=== PATIENT | female | born 1990 | race Caucasian/White ===

== ENCOUNTER 2016-07-16 15:59 | Emergency (ER) | payer BC, OTHER ==
--- NOTE | 2016-07-16 18:55 | ER Document Report ---
ED GI/ - General Chief Complaint: abdominal pain, N/V. Stated Complaint: ABDOMINAL PAIN,FEVER,VOMITING Time Seen by Provider: 07/16/16 18:54 TRAVEL OUTSIDE OF THE [place] IN LAST 30 DAYS: No - Related Data Allergies/Adverse Reactions: No Known Allergies Allergy (Unverified 07/16/16 16:12) Past Medical History - Social History Family History: Hypertension Renal/ Medical History: Denies: Hx Peritoneal Dialysis Past Surgical History: Reports: Hx Adenoidectomy, Hx Tonsillectomy - Immunizations Immunizations up to date: Yes Hx Diphtheria, Pertussis, Tetanus Vaccination: Yes Physical Exam - Vital signs Vitals: Temp Pulse Resp BP Pulse Ox 98.0 F 65 20 116/67 100 07/16/16 16:09 07/16/16 16:09 07/16/16 16:09 07/16/16 16:09 07/16/16 16:09 Course - Vital Signs Vital signs: Temp Pulse Resp BP Pulse Ox 98.0 F 65 20 116/67 100 07/16/16 16:09 07/16/16 16:09 07/16/16 16:09 07/16/16 16:09 07/16/16 16:09
[2016-07-16 19:34] LABS: HEMATOCRIT 39.5 % (36.0-47.0); HEMOGLOBIN 13.7 g/dL (12.0-15.5); HGB HCT DIFFERENCE 1.6; MEAN CORPUSCULAR HEMOGLOBIN 31.3 pg (27.0-33.4); MEAN CORPUSCULAR HGB CONC 34.8 g/dL (32.0-36.0); MEAN CORPUSCULAR VOLUME 90 fl (80-97); RED BLOOD COUNT 4.39 10^6/uL (3.72-5.28); RED CELL DISTRIBUTION WIDTH 13.1 % (11.5-14.0); WHITE BLOOD COUNT 9.1 10^3/uL (4.0-10.5)
[2016-07-16 19:51] LABS: AMORPHOUS SEDIMENT,URINE TRACE /HPF; APPEARANCE,URINE SLIGHTLY-CLOUDY; BILIRUBIN,URINE NEGATIVE (NEGATIVE); GLUCOSE, URINE NEGATIVE (NEGATIVE); KETONES,URINE NEGATIVE (NEGATIVE); LEUKOCYTE ESTERASE,URINE TRACE (NEGATIVE); NITRITE,URINE NEGATIVE (NEGATIVE); PROTEIN,URINE NEGATIVE (NEGATIVE); URINE SPECIFIC GRAVITY 1.013
[2016-07-16 19:53] LABS: ALANINE AMINOTRANSFERASE 33 U/L (9-52); ALBUMIN 4.1 g/dL (3.5-5.0); ALKALINE PHOSPHATASE 42 U/L (38-126); ANION GAP 12 (5-19); ASPARTATE AMINO TRANSFERASE 24 U/L (14-36); BILIRUBIN,DIRECT 0.3 mg/dL (0.0-0.4); BILIRUBIN,TOTAL 0.7 mg/dL (0.2-1.3); BLOOD UREA NITROGEN 6 mg/dL (7-20); CALCIUM 9.5 mg/dL (8.4-10.2); CARBON DIOXIDE 25 mmol/L (22-30); CHLORIDE 104 mmol/L (98-107); CREATINE KINASE 37 U/L (30-135); CREATININE RESULT 0.73 mg/dL (0.52-1.25); GLUCOSE 96 mg/dL (75-110); LIPASE 73.9 U/L (23-300); POTASSIUM 3.4 mmol/L (3.6-5.0); SODIUM 140.8 mmol/L (137-145); TOTAL PROTEIN 6.9 g/dL (6.3-8.2)
--- NOTE | 2016-07-16 20:05 | ER Document Report ---
ED Medical Screen (RME) - General Chief Complaint: abdominal pain, N/V. Stated Complaint: ABDOMINAL PAIN,FEVER,VOMITING Time Seen by Provider: 07/16/16 18:54 Notes: Patient is a 26-year-old female, no past medical history, presents with 3 days of diffuse abdominal pain, worse in the right lower quadrant. 2 nights ago, she had a large episode of emesis that was dark. She saw her primary care physician today and was sent to the emergency room due to abdominal tenderness. Denies urinary symptoms, flank pain, fevers or current nausea PE: RLQ and epigastric abdominal tenderness, good bowel sounds, NAD I have greeted and performed a rapid initial assessment of this patient. A comprehensive ED assessment and evaluation of the patient, analysis of test results and completion of the medical decision making process will be conducted by additional ED providers. TRAVEL OUTSIDE OF THE [place] IN LAST 30 DAYS: No - Related Data Allergies/Adverse Reactions: No Known Allergies Allergy (Unverified 07/16/16 16:12) Past Medical History - Social History Chew tobacco use (# tins/day): No Frequency of alcohol use: Occasional Renal/ Medical History: Denies: Hx Peritoneal Dialysis Past Surgical History: Reports: Hx Adenoidectomy, Hx Tonsillectomy - Immunizations Immunizations up to date: Yes Hx Diphtheria, Pertussis, Tetanus Vaccination: Yes Physical Exam - Vital signs Vitals: Temp Pulse Resp BP Pulse Ox 98.0 F 65 20 116/67 100 07/16/16 16:09 07/16/16 16:09 07/16/16 16:09 07/16/16 16:09 07/16/16 16:09 Course - Vital Signs Vital signs: Temp Pulse Resp BP Pulse Ox 98.0 F 65 20 116/67 100 07/16/16 16:09 07/16/16 16:09 07/16/16 16:09 07/16/16 16:09 07/16/16 16:09 - Laboratory Result Diagrams: 07/16/16 19:00 07/16/16 19:00 Laboratory results interpreted by me: 07/16/16 07/16/16 19:00 19:00 Potassium 3.4 L BUN 6 L Urine Blood SMALL H Urine Urobilinogen 2.0 H Ur Leukocyte Esterase TRACE H
[2016-07-16 20:34] LABS: BAND NEUTROPHILS % (MANUAL) 1 % (3-5); BASOPHILS % (MANUAL) 0 % (0-2); EOSINOPHILS % (MANUAL) 0 % (0-6); TOTAL CELLS COUNTED 100
[2016-07-16 20:35] LABS: LYMPHOCYTES % (MANUAL) 65 % (13-45); RBC MORPHOLOGY COMMENT NORMO-CYTIC/CHROMIC
--- NOTE | 2016-07-16 21:16 | RADIOLOGY REPORT (SQ) ---
EXAM DESCRIPTION: CT ABD/PELVIS WITH IV ONLY COMPLETED DATE/TIME: 07/16/2016 8:48 pm REASON FOR STUDY: RLQ abdominal pain COMPARISON: None. TECHNIQUE: CT scan of the abdomen and pelvis performed using helical scanning technique with dynamic intravenous contrast injection. No oral contrast. Images reviewed with lung, soft tissue, and bone windows. Reconstructed coronal and sagittal MPR images reviewed. Delayed images for evaluation of the urinary system also acquired. All images stored on PACS. All CT scanners at this facility use dose modulation, iterative reconstruction, and/or weight based d osing when appropriate to reduce radiation dose to as low as reasonably achievable (ALARA). [facility]: Dose Right [facility]: CareDose [facility]: Dose Right [facility]: Teradose 4D [facility]: MixRank CONTRAST TYPE AND DOSE: 69mL Isovue 370- low osmolar. RENAL FUNCTION: GFR > 60. RADIATION DOSE: 11.38mGy. LIMITATIONS: None. FINDINGS: LOWER CHEST: No significant findings. No nodules or infiltrates. LIVER: Normal size. No masses or dilated ducts. SPLEEN: Normal size. No focal lesions. PANCREAS: No masses. No significant calcifications. No adjacent inflammation or peripancreatic fluid collections. Pancreatic duct not dilated. GALLBLADDER: No identified stones by CT criteria. No inflammatory changes to suggest cholecystitis. ADRENAL GLANDS: No significant masses or asymmetry. RIGHT KIDNEY AND URETER: No solid masses. No significant calcifications. No hydronephrosis or hyd roureter. LEFT KIDNEY AND URETER: No solid masses. No significant calcifications. No hydronephrosis or hydr oureter. AORTA AND VESSELS: No aneurysm. No dissection. Renal arteries, SMA, celiac without stenosis. RETROPERITONEUM: No retroperitoneal adenopathy, hemorrhage or masses. BOWEL AND PERITONEAL CAVITY: No masses or inflammatory changes. No free fluid or peritoneal masses. APPENDIX: Not visualized. PELVIS: No mass or free fluid. Normal bladder. ABDOMINAL WALL: No masses. No hernias. BONES: No significant or acute findings. OTHER: No other significant finding. IMPRESSION: NO ACUTE FINDING IN THE ABDOMEN OR PELVIS ON CT SCAN WITH IV CONTRAST. APPENDIX: Not visualized. TECHNICAL DOCUMENTATION: JOB ID: [id number] Quality ID # [id number]: Final reports with documentation of one or more dose reduction techniques (e.g., Au tomated exposure control, adjustment of the mA and/or kV according to patient size, use of iterative reconstruction technique) 2010 [employer]- All Rights Reserved
[2016-07-16] MEDS ORDERED: ONDANSETRON HCL INJ/PF 4 MG/2 ML SDV IV ONE (21:55)
[2016-07-16] MEDS ORDERED: NORMAL SALINE 1000 ML 1,000 ML IV ONE (21:55)
--- NOTE | 2016-07-16 21:58 | ER Document Report ---
ED GI/ - General Chief Complaint: abdominal pain, N/V. Stated Complaint: ABDOMINAL PAIN,FEVER,VOMITING Time Seen by Provider: 07/16/16 18:54 Notes: Patient is a 26-year-old female who comes emergency department for chief complaint of 3 days of diffuse abdominal pain, she tells me it is worse in the middle of her abdomen, she also feels it in her right lower abdomen and also in her upper middle abdomen. She states 2 nights ago she had an episode where she had a dark vomiting episode, she was evaluated by her primary care physician today and sent to the emergency department. Patient states that she has had a low-grade fever over the weekend measuring at 100.5 but not today. She states that she gets nauseated and vomits when she eats. She denies flank pain, vaginal discharge or bleeding. TRAVEL OUTSIDE OF THE [place] IN LAST 30 DAYS: No - Related Data Allergies/Adverse Reactions: No Known Allergies Allergy (Unverified 07/16/16 16:12) Past Medical History - General Information source: Patient - Social History Smoking Status: Never Smoker Chew tobacco use (# tins/day): No Frequency of alcohol use: Occasional Drug Abuse: None Lives with: Family Family History: Hypertension - Medical History Medical History: Negative Renal/ Medical History: Denies: Hx Peritoneal Dialysis Past Surgical History: Reports: Hx Adenoidectomy, Hx Tonsillectomy - Immunizations Immunizations up to date: Yes Hx Diphtheria, Pertussis, Tetanus Vaccination: Yes Review of Systems - Review of Systems Constitutional: See HPI EENT: No symptoms reported Cardiovascular: No symptoms reported Respiratory: No symptoms reported Gastrointestinal: See HPI Genitourinary: No symptoms reported Female Genitourinary: No symptoms reported Musculoskeletal: No symptoms reported Skin: No symptoms reported Hematologic/Lymphatic: No symptoms reported Neurological/Psychological: No symptoms reported Physical Exam - Vital signs Vitals: Temp Pulse Resp BP Pulse Ox 98.0 F 65 20 116/67 100 07/16/16 16:09 07/16/16 16:09 07/16/16 16:09 07/16/16 16:09 07/16/16 16:09 Interpretation: Normal - General General appearance: Appears well, Alert In distress: None - patient smiling, well appearing, talkative - HEENT Head: Normocephalic, Atraumatic Eyes: Normal Conjunctiva: Normal Extraocular movements intact: Yes Eyelashes: Normal Pupils: PERRL Nasal: Normal Mouth/Lips: Normal Mucous membranes: Normal Pharynx: Normal Neck: Normal - Respiratory Respiratory status: No respiratory distress Chest status: Nontender Breath sounds: Normal. No: Decreased air movement, Wheezing Chest palpation: Normal - Cardiovascular Rhythm: Regular. No: Tachycardia Heart sounds: Normal auscultation, S1 appreciated, S2 appreciated Murmur: No - Abdominal Inspection: Normal Distension: No distension Bowel sounds: Normal Tenderness: Tender - most tender in general upper abdomen, there is tenderness in the RLQ with no guarding, there is increased tenderness in the right inguinal area as opposed to McBurney's point Organomegaly: No organomegaly - Back Back: Normal, Nontender - Extremities General upper extremity: Normal inspection, Nontender, Normal color, Normal ROM , Normal temperature General lower extremity: Normal inspection, Nontender, Normal color, Normal ROM , Normal temperature, Normal weight bearing. No: Jenifer's sign - Neurological Neuro grossly intact: Yes Cognition: Normal Orientation: AAOx4 Raimundo Coma Scale Eye Opening: Spontaneous Raimundo Coma Scale Verbal: Oriented [place] Coma Scale Motor: Obeys Commands Raimundo Coma Scale Total: 15 Speech: Normal Motor strength normal: LUE, RUE, LLE, RLE Sensory: Normal - Psychological Associated symptoms: Normal affect, Normal mood - Skin Skin Temperature: Warm Skin Moisture: Dry Skin Color: Normal Course - Re-evaluation Re-evalutation: CBC shows a lymphocytic shift with no leukocytosis. Chemistry unremarkable. Urinalysis unremarkable with no dysuria or flank pain. Mild hypokalemia. When I asked patient to telemetry where her abdominal pain is she points to the area just above the umbilicus, pain is actually more right inguinal region than the RLQ. CT showing no acute abnormalities, but appendix is not visualized. On re- examination of the abdomen, I do not appreciate any significant tenderness of the RLQ compared to the rest of the abdomen, generally mildly tender without guarding or rebound tenderness. No discharge vaginally, no cyst noted on CT scan , no TOA noted on CT scan, low suspicion of pelvic source. I did discuss the possibility of an evaluation by a surgeon or even a repeat CT with contrast, however patient states she feels much better and declines. Patient tolerated PO fluids without any difficulty or vomiting. Patient asking to leave now. Discussed with Dr. Guevara. Treating with zofran, pepcid, discussed followup, discussed return precautions in detail, patient states understanding and agreement. - Vital Signs Vital signs: Temp Pulse Resp BP Pulse Ox 98.0 F 65 20 113/74 100 07/16/16 16:09 07/16/16 16:09 07/16/16 16:09 07/16/16 23:00 07/16/16 23:01 - Laboratory Result Diagrams: 07/16/16 19:00 07/16/16 19:00 Laboratory results interpreted by me: 07/16/16 07/16/16 07/16/16 19:00 19:00 19:00 Seg Neuts % (Manual) 22 L Band Neutrophils % 1 L Lymphocytes % (Manual) 65 H Abs Lymphs (Manual) 6.4 H Potassium 3.4 L BUN 6 L Urine Blood SMALL H Urine Urobilinogen 2.0 H Ur Leukocyte Esterase TRACE H Discharge - Discharge Clinical Impression: Abdominal pain Qualifiers: Abdominal location: generalized Qualified Code(s): R10.84 - Generalized abdominal pain Vomiting Qualifiers: Vomiting type: unspecified Vomiting Intractability: unspecified Nausea presence : with nausea Qualified Code(s): R11.2 - Nausea with vomiting, unspecified Fever Qualifiers: Fever type: unspecified Qualified Code(s): R50.9 - Fever, unspecified Condition: Stable Disposition: HOME, SELF-CARE Additional Instructions: Your workup and evaluation tonight is most consistent with gastroenteritis. This should resolve with time. Take the zofran for nausea, the pepcid to calm the stomach/inflammation, start with bland foods (toast, rice, soup, crackers, etc). The cat scan does not show any abnormalities, although the appendix is not specifically visualized. If you start to develop pain that localizes and worsens in the right lower abdomen, you have worsening pain, your vomiting becomes uncontrolled, you begin to have abdominal swelling, or any other concerning symptoms develop please return to the ED immediately. Prescriptions: Famotidine [Pepcid 20 mg Tablet] 20 mg PO BID #14 tablet Ondansetron [Zofran Odt 4 mg Tablet] 1 - 2 tab PO Q4H PRN #15 tab.rapdis PRN Reason: For Nausea/Vomiting Forms: Return to Work Referrals: MAKAYLA SWARTZ MD [Primary Care Provider] - Follow up as needed
[2016-07-16] MEDS ORDERED: FAMOTIDINE 20 MG TABLET PO ONE (23:07)
[2016-07-16] MEDS ORDERED: ONDANSETRON ODT 4 MG TAB (6 TAB/DSPK) PO PRN (23:07)
[2016-07-16 23:14] VITALS: BP 113/74
== END 2016-07-16 23:24 | disposition home or self-care (01) ==
LOC: ER 15:59
DX: R10.84 Generalized abdominal pain (principal); R11.2 Nausea with vomiting, unspecified; E87.6 Hypokalemia; R50.9 Fever, unspecified
CPT/HCPCS: 99284; 96360; 36415; 82550; 83690; 85025; 81025; 80053; 81001; 74177; J7030

== ENCOUNTER → 2017-07-26 | Outpatient (CLI) | payer OTHER | LOC: OD 16:18 | PROVIDERS: ATTEND Physician Assistant | DX: L70.8 Other acne (principal); L81.4 Other melanin hyperpigmentation; Z79.899 Other long term (current) drug therapy | CPT/HCPCS: 36415; 84132 ==